=== PATIENT | female | born 1990 | race American Indian/Alaskan Native ===

== ENCOUNTER 2018-05-17 15:56 | Emergency (ER) | payer OTHER ==
[~2018-05-17] VITALS: Ht 165.1 cm; Wt 54.9 kg
== END 2018-05-17 18:41 | disposition home or self-care (01) ==
LOC: ER 15:56
DX: M62.830 Muscle spasm of back (principal); M62.838 Other muscle spasm

== ENCOUNTER 2018-05-21 20:42 | Emergency (ER) | payer OTHER ==
[~2018-05-21] VITALS: Ht 165.1 cm; Wt 54.4 kg
[2018-05-22] MEDS ORDERED: CELEBREX100 MG PO (01:01)
[2018-05-22] MEDS ORDERED: MEDROLPACK PO (01:01)
[2018-05-22] MEDS ORDERED: CYCLOBENZAPRINE10 MG PO (01:01)
== END 2018-05-22 01:27 | disposition home or self-care (01) ==
LOC: ER 20:42
DX: M54.2 Cervicalgia (principal)

== ENCOUNTER 2018-07-25 00:47 | Emergency (ER) | payer OTHER ==
[~2018-07-25] VITALS: Ht 165.1 cm; Wt 54.9 kg
[~2018-07-25 00:47] MED LIST: CELEBREX100 MG PO; CYCLOBENZAPRINE10 MG PO; MEDROLPACK PO
[2018-07-25] MEDS ORDERED: KETO10TA2 PO (06:06)
== END 2018-07-25 06:13 ==
LOC: ER 00:47
DX: M94.0 Chondrocostal junction syndrome [Tietze] (principal); R07.9 Chest pain, unspecified

== ENCOUNTER 2018-10-21 06:03 | Emergency (ER) | payer OTHER ==
[~2018-10-21] VITALS: Ht 165.1 cm; Wt 55.8 kg
[~2018-10-21 06:03] MED LIST changes: +KETO10TA2 PO
[2018-10-21] MEDS ORDERED: PRENATABS RX T1 EACH (06:18)
== END 2018-10-21 12:57 | disposition home or self-care (01) ==
LOC: ER 06:03
DX: O26.851 Spotting complicating pregnancy, first trimester (principal); Z34.01 Encounter for supervision of normal first pregnancy, first trimester

== ENCOUNTER 2019-03-08 10:45 | Outpatient (CLI) | payer OTHER ==
[~2019-03-08 10:45] MED LIST changes: +PRENATABS RX T1 EACH
== END 2019-03-08 11:38 | disposition home or self-care (01) ==
LOC: NST 10:45
DX: Z34.83 Encounter for supervision of other normal pregnancy, third trimester (principal)

== ENCOUNTER 2019-03-24 11:27 | Outpatient (CLI) | payer OTHER | END 2019-03-24 12:44 | disposition home or self-care (01) | LOC: NST 11:27 | DX: Z34.83 Encounter for supervision of other normal pregnancy, third trimester (principal) ==

== ENCOUNTER 2019-04-17 09:48 | Outpatient (CLI) | payer OTHER | END 2019-04-17 10:45 | disposition home or self-care (01) | LOC: NST 09:48 | DX: Z34.83 Encounter for supervision of other normal pregnancy, third trimester (principal) ==